=== PATIENT | male | born 1990 | race African-American/Black ===

== ENCOUNTER 2024-02-06 17:53 | Emergency (ER) | payer OTHER, SELFPAY ==
[2024-02-06 17:55] VITALS: BP 127/72; PULSE 83; RESP 15; TEMP 36.6; O2SAT 100
[2024-02-06 20:09] VITALS: BP 118/84; PULSE 73; RESP 20; TEMP 36.3; O2SAT 100
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
[2024-02-06] MEDS: ACETAMINOPHEN 500 MG TABLET 1000 MG PO (20:56)
[2024-02-06] MEDS: CYCLOBENZAPRINE HCL 10 MG TABLET PO (20:56)
[2024-02-06] MEDS: IBUPROFEN 400 MG TABLET PO (20:56)
== END 2024-02-06 21:21 | disposition home or self-care (01) ==
LOC: ANHED 21:08
PROVIDERS: Emergency Provider Emergency Medicine
DX: S16.1XXA Strain of muscle, fascia and tendon at neck level, initial encounter (principal); V43.52XA Car driver injured in collision with other type car in traffic accident, initial encounter
CPT/HCPCS: 99283; A9270